=== PATIENT | female | born 2005 | race Caucasian/White ===

== ENCOUNTER 2024-02-15 20:11 | Emergency (ER) | payer SELFPAY ==
[2024-02-15 20:11] VITALS: BP 141/84; PULSE 74; RESP 19; TEMP 36.2; O2SAT 100; BMI 27.9
[2024-02-15 22:14] VITALS: BP 138/84; PULSE 75; RESP 18
--- NOTE | 2024-02-15 22:35 | EX.ED.DYSGE1 ---
HPI History of Present Illness Chief Complaint: Foreign Body Detail of Chief Complaint: Vaginal foreign body Informant: patient Onset/Context/Timing Onset: Weeks Narrative Narrative: Patient presents with a vaginal foreign body that is been present for 3 weeks. She states there is a butt plug in her vagina. She did not realize it was retained until earlier today. She has recently been treated with 2 rounds of antibiotics for UTI. She states they tried to remove it at urgent care but were unable and she was sent to the emergency room. PFSH PFSH Medical History no medical history no medical history Home Medications ?Medication ?Instructions ?Recorded ?Last Taken ?Type NK 02/15/24 Unknown History Social History Smoking Status: Never smoker ROS ROS ED Constitutional Constitutional ED: Denies chills or fever(s) Eyes Eyes: Denies change in vision ENT ENT ED: Denies rhinorrhea Cardiovascular Cardiovascular: Denies chest pain or palpitations Respiratory/Chest Respiratory/Chest: Denies cough or dyspnea Gastrointestinal Gastrointestinal: Denies abdominal pain Genitourinary Genitourinary ED: Reports dysuria and other Details: Pelvic pain Neurologic Neurologic: Denies headache(s) EXAM Physical Exam Const Vital Signs: 02/15/24 20:11 02/15/24 21:43 02/15/24 22:14 Temperature 97.2 F L Temperature Source Temporal Pulse Rate 74 75 Respiratory Rate 19 H 18 Respiratory Effort Normal Non-Labored Respiratory Pattern Normal Blood Pressure 141/84 H 138/84 H Blood Pressure Mean 103 102 Pulse Ox 100 Oxygen Delivery Method Room Air Positive well nourished and well developed General Appearance ED: well developed HEENT Reports moist mucous membranes Eyes EOMs intact bilaterally Chest Wall inspection of chest normal and palpation of chest normal Resp normal respiratory effort and clear to auscultation bilaterally Cardio regular rate and regular rhythm GI GI Narrative: Abdomen soft with mild suprapubic tenderness. Extremity normal to inspection Neuro oriented x3 and no sensory deficits noted Motor Exam: strength 5/5 throughout Psych mental status grossly normal Skin no rashes or lesions noted MDM MDM MDM Narrative Medical decision making narrative: Urinalysis and urine test ordered. Pelvic examination performed with female nurse industrial engineering professor. Foreign body is noted. Patient has a lot of tissue edema and pain. She is unable to tolerate exam without further sedation. I will speak with Dr. Ibarra, on-call for HUMAN RESOURCES RECEPTIONIST tonight. Dr. Ibarra presented to the emergency room. She was able to remove the foreign body at bedside. Urinalysis returns with 5-10 white cells and rare bacteria. test is negative. Dr. Ibarra had requested the patient go home and sent a bath to help clean herself. She needs to establish care with a CALCULATING MACHINE OPERATOR. Patient be discharged with return instructions. Lab Data Labs: Laboratory Results - last 24 hr 02/15/24 22:50 Urine Color Yellow Urine Clarity Clear Urine pH 6.0 Ur Specific [place] 1.020 Urine Protein 15 H Urine Glucose (UA) Normal Urine Ketones Negative Urine Occult Blood 25 H Urine Nitrite Negative Urine Bilirubin Negative Urine Urobilinogen Normal Ur Leukocyte Esterase 500 H Urine RBC 0-5 SEEN Urine WBC 5-10 SEEN Ur Squamous Epith Cells 0 SEEN Urine Bacteria RARE Urine Mucus RARE Urine Test Negative Discharge Plan Triage Chief Complaint: Foreign Body ED Provider: Marlen Fisher Dx/Rx/DC Orders Clinical Impression: Retained vaginal foreign body Instructions: ED Foreign Body Vaginal Adult Prescriptions: No Action NK Primary Care Provider: Care Physician,No Primary Referrals: Marlen Ibarra MD [Med Staff - Active Staff] - 1-2 Weeks NOT,DEFINED [Non-Staff] - Print Language: Greek Disposition Disposition: Home, Self Care
[2024-02-15 22:56] LABS: Color, Urine Yellow (Yellow); Glucose, Dipstick Normal (Normal); Ketone-Dipstick Negative (Negative); Leukocyte Esterase-Dipstick 500 /ul (Negative); Nitrite-Dipstick Negative (Negative); Occult Blood-Urine 25 /ul (Negative); Protein-Dipstick 15 mg/dl (Negative); Squamous Epithelial Cells - UA 0 SEEN /hpf (5-10); Urine Bilirubin Dipstick Negative (Negative); Urine Clarity Clear (Clear); Urine Urobilinogen Normal (Normal)
[2024-02-15 23:00] LABS: Internal QC Validated? YES +Cl - CLEAR BKGD; Pregnancy, Urine Negative Negative
--- NOTE | 2024-02-15 23:00 | CON.PCM.OB_ITS ---
Assessment & Plan (1) Retained vaginal foreign body: QUALIFIERS: Encounter type: initial encounter Qualified Code(s): T19.2XXA - Foreign body in vulva and vagina, initial encounter PLAN: Removed in ED. Patient encouraged to sit in warm bath of water no soap to irrigate vaginal canal. Encouraged follow up with Carpenter Hel[employer] Maintenance HPI Consult Data Date of Consult: 02/15/24 HPI Narrative Reason for Consultation: Vaginal foreign body HPI Narrative: MASSIEL ALCANTAR, is a 18 F who presents with silicone butt plug intravaginal. Accidentally placed 3 weeks ago and didn't realize it was there until this evening. Has been treating UTIs because of pain and pressure without improvement. No vaginal discharge and has had a period since it was placed. Patient unable to remove herself. Sent to ED from [facility]. Has never had a speculum exam. [place] PFSH Medical History no medical history Home Medications ?Medication ?Instructions ?Recorded ?Last Taken ?Type NK 02/15/24 Unknown History Social History Smoking Status: Never smoker Vital Signs Vital Signs Vital Signs: 02/15/24 20:11 02/15/24 21:43 02/15/24 22:14 Temperature 97.2 F L Temperature Source Temporal Pulse Rate 74 75 Respiratory Rate 19 H 18 Respiratory Effort Normal Non-Labored Respiratory Pattern Normal Blood Pressure 141/84 H 138/84 H Blood Pressure Mean 103 102 Pulse Ox 100 Oxygen Delivery Method Room Air Weight Weight: 78.471 kg Body Mass Index (BMI) 27.9 ROS Constitutional Constitutional: Reports systems reviewed and no addt'l complaints, except as documented Genitourinary Genitourinary: Reports urinary frequency and other Details: pressure Psychiatric Psychiatric: Reports anxiety Physical Exam Narrative Base of silicone toy felt 2 cm intravaginal. Red rubber catheter used to break suction along vaginal side wall. Base could be grasped at its base and pulled directly out intact. Minimal blood or discharge. Const alert and oriented x3 General Appearance: cooperative and anxious HEENT normocephalic Head and Scalp: atraumatic Eyes PERRL Neck full ROM Resp normal respiratory effort GI soft to palpation and non-tender external exam normal Extremity normal to inspection Skin no rashes or lesions noted Neuro moves all extremities Psych mental status grossly normal Lab / Micro Data Labs: Laboratory Results - last 24 hr 02/15/24 22:50: Urine Color Yellow, Urine Clarity Clear, Urine pH 6.0, Ur Specific [place] 1.020, Urine Protein 15 H, Urine Glucose (UA) Normal, Urine Ketones Negative, Urine Occult Blood 25 H, Urine Nitrite Negative, Urine Bilirubin Negative, Urine Urobilinogen Normal, Ur Leukocyte Esterase 500 H
[2024-02-15 23:02] LABS: Red Blood Cells-Urine 0-5 SEEN /hpf (0-5); White Blood Cells 5-10 SEEN /hpf (0-5)
[2024-02-15 23:03] LABS: Bacteria RARE /hpf (None Seen); Mucous, Urine RARE /hpf (<or=2+)
== END 2024-02-15 23:38 | disposition home or self-care (01) ==
PROVIDERS: Emergency Provider Emergency Medicine; Visit Provider Emergency Medicine
DX: T19.2XXA Foreign body in vulva and vagina, initial encounter (principal); W44.B3XA Plastic toy and toy part entering into or through a natural orifice, initial encounter
CPT/HCPCS: 81001; 81025; 99282